=== PATIENT | male | born 1995 | race Caucasian/White ===

== ENCOUNTER 2019-05-16 21:32 | Emergency (ER) | payer OTHER ==
[2019-05-16 21:45] VITALS: BP 144/78
[2019-05-16] MEDS ORDERED: IBUPROFEN 600 MG TABLET PO STA (21:46)
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
== END 2019-05-16 22:10 | disposition home or self-care (01) ==
LOC: ED 21:32
DX: S80.11XA Contusion of right lower leg, initial encounter (principal); S80.811A Abrasion, right lower leg, initial encounter; S80.02XA Contusion of left knee, initial encounter; V28.0XXA Motorcycle driver injured in noncollision transport accident in nontraffic accident, initial encounter; Y92.410 Unspecified street and highway as the place of occurrence of the external cause
CPT/HCPCS: 73590; 99282; 99283; A9270

== ENCOUNTER 2021-11-29 05:34 | Emergency (ER) | payer OTHER ==
[2021-11-29 05:44] VITALS: BP 135/72
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
== END 2021-11-29 06:23 | disposition home or self-care (01) ==
LOC: ED 05:34
DX: M46.1 Sacroiliitis, not elsewhere classified (principal); M54.31 Sciatica, right side
CPT/HCPCS: 99282; 99284